=== PATIENT | female | born 1975 | race Caucasian/White ===

== ENCOUNTER 2023-01-03 | Emergency (ER) | payer BC, SELFPAY ==
--- NOTE | 2023-01-03 | ECG_ITS ---
Test Reason : CHEST PAIN Blood Pressure : / mmHG Vent. Rate : 065 BPM Atrial Rate : 065 BPM P-R Int : 148 ms QRS Dur : 072 ms QT Int : 388 ms P-R-T Axes : 069 086 054 degrees QTc Int : 403 ms Normal sinus rhythm with sinus arrhythmia Normal ECG No previous ECGs available Referred By: Generic ED Physician Electronically Signed By:JESS CARLSON
[2023-01-03 00:10] VITALS: BP 119/77; PULSE 70; RESP 18; TEMP 36.7; O2SAT 100; BMI 21.0
[2023-01-03 00:29] LABS: Hematocrit 36.5 % (37.0-47.0); Mean Corpuscular HGB Conc 32.9 g/dl (31.0-35.0); Mean Corpuscular Hemoglobin 29.4 pg (27.0-33.0); Mean Corpuscular Volume 89.5 fL (80.0-98.0); Mean Platelet Volume 10.9 fL (9.4-12.3); Platelet Count 254 X10*3/uL (160-400); Red Blood Count 4.08 X10*6/uL (4.20-5.50); Red Cell Distribution Width 12.2 % (11.0-16.0); White Blood Count 6.5 X10*3/uL (4.8-10.8)
[2023-01-03 00:35] LABS: Alanine Aminotransferase 8 U/L (0-31); Albumin Level 3.9 g/dL (3.5-5.0); Alkaline Phosphatase 40 U/L (39-117); Anion Gap 11 (12-20); Aspartate Amino Transferase 15 U/L (5-31); Bilirubin Total 0.4 mg/dL (0.0-1.0); Blood Urea Nitrogen 14 mg/dL (9-16); Calcium 8.8 mg/dL (8.4-10.2); Carbon Dioxide 26 mmol/L (22-29); Chloride 108 mmol/L (96-108); Creatinine Clr Calc Pharmacy 75.1; Estimated Glomerular Filt Rate > 60; Glucose Random 90 mg/dL (60-115); Potassium 4.2 mmol/L (3.3-5.1); Sodium 141 mmol/L (135-145); Total Protein 6.2 g/dL (6.5-8.0)
[2023-01-03 00:46] LABS: Troponin-I High Sensitivity < 2.7 ng/L (<3.5-17.0)
--- OUTSIDE RECORDS SUMMARY | 2023-01-03 03:12 | XMS_ITS | Continuity of Care Document ---
Author Name Unknown Organization [facility] Moiz Gusman n's Group Address [facility], [address] [place] [address]- Care Team Providers Care Speech And Language Assistant Name Role Phone Michael NUNEZ, Yan Denton Primary Care Physician [facility] Date(s): [facility]01[facility]21 [facility] [address] [place] [address], [address] [place] [address]- Allergies, Adverse Reactions, Alerts Substance Reaction Severity Status penicillin Active sulfADIAZINE Active Problem List Condition Effective Dates Status Health Status Inform ant Endometriosis(Confirmed) Active Ovarian cystic mass(Confirmed) Active Social History Social History Type Response Smoking Status Unknown if ever smok ed entered on: 02/23/16 Sex
--- OUTSIDE RECORDS SUMMARY | 2023-01-03 03:12 | XMS_ITS | Continuity of Care Document ---
Author Name Unknown Organization [facility] Moiz marquezAllostatixs [facility] Address [address] [facility], 4t [place] [address]- Care Team Providers Care Compressor Station Engineer Chief Name Role Phone Shari Delgado DO Primary Care Physician [phone] [id number] Date[facility]s): 03/27/22 - 04/03/22 [facility] Moizhue QuijnaoAllostatixs [facility] [address] [facility], [address] [place] [address]- Attending Physician: Tab NUNEZ, Red Rodriguez Referring Physician: Not on Staff, Referring MD Allergies, Adverse Reactions, Alerts Substance Reaction Severity Status penicillin Active sulfADIAZINE Active Glutens Active Milk Products Active Wheat Active Soy Products Active Medications Albuterol (Eqv-ProAir HFA) Inhalation, Every 6 hours, 0 Refills, Maintenance, 08/07/21 17:41:00 EDT, Partial fill upon patientrequest if the prescription is for a schedule II opioid drug. Start Date: 08/07/21 Status: Ordered Benadryl 25 mg oral capsule 2 capsule = 50 mg, By Mouth, Daily at bedtime, PRN as needed for insomnia, 0 Refills, Maintenance, 03/27/22 11:26:00 EST, Partial fill upon patient request if the prescription is for a schedule II opioid drug. Start Date: 03/27/22 Status: Ordered cyclobenzaprine 5 mg oral tablet 2 tablet = 10 mg, By Mouth, Daily at bedtime, 0 Refills, Maintenance, 03/27/22 11:25:00 EST, Partial fill upon patient request if the prescription is for a schedule II opioid drug. Start Date: 03/27/22 Status: Ordered Fish Oil By Mouth, 0 Refills, Maintenance, 08/07/21 17:40:00 EDT, Partial fill upon patient request if the prescription is for a schedule II opioid drug. Start Date: 08/07/21 Status: Ordered Flovent Diskus Inhalation, 2 times a day, 0 Refills, Maintenance, 08/07/21 17:41:00 EDT, Partial fill upon patientrequest if the prescription is for a schedule II opioid drug. Start Date: 08/07/21 Status: Ordered Magnesium Oxide By Mouth, 0 Refills, Maintenance, 08/07/21 17:41:00 EDT, Partial fill upon patient request if the prescription is for a schedule II opioid drug. Start Date: 08/07/21 Status: Ordered Multivitamin Daily, 0 Refills, Maintenance, 08/07/21 17:40:00 EDT, Partial fill upon patient request if the prescription is for a schedule II opioid drug. Start Date: 08/07/21 Status: Ordered Tylenol 325 mg oral tablet 975 mg, 3, tablet, By Mouth, Every 4 hours, PRN, # 120 tablet, Refills 0, Maintenance, Pain , Moderate, 03/27/22 11:25:00 EST, Partial fill upon patient request if the prescription is for a schedule II opioid drug. Start Date: 03/27/22 Status: Ordered Problem List Condition Confirmation Course Effective Dates Status Health St atus Informant Anxiety Confirmed Active Asthma Confirmed Active Depression Confirmed Active Endometriosis Confirmed Active Fibromyalgia Confirmed Active Migraine Confirmed Active Procedures Procedure Date Related Diagnosis Body Site Status Cystectomy 2021 Completed Adhesions due to endometriosis 1 Completed Endoscopy of upper gastroint estinal tract and banding of varix of stomach Completed 1bilateral ovaries, and left kidney Social History Social History Type Response Smoking Status Never (less than 100 in lifetime) entered on: 05/12/21 Sex Patient Care team information Care Team Personnel Name: Shari Delgado DO Position: [facility] Outreach Member Role: PCP Address: Address: [address] [place] [address]- Care Team Related Persons Name: WALTER CACERES Address: home [address] [place] [address]
--- OUTSIDE RECORDS SUMMARY | 2023-01-03 03:12 | XMS_ITS | Continuity of Care Document ---
Author Name Unknown Organization [facility] marquezLC [employer] Address [address] [place] [address], [address] [place] [address]- Care Team Providers Care Glass Artist Name Role Phone Shari Delgado DO Primary Care Physician [id number]): [facility] - 04[facility]11/22 [facility] Moizhue QuijanoLC [employer] [facility] [address] [facility], [address] [place] [address]- Attending Physician: Tab NUNEZ, Red Rodriguez Referring [...] opioid drug. Start Date: 08/07/21 Status: Ordered amitriptyline 25 mg oral tablet 25 mg, 1, tablet, By Mouth, Daily at bedtime, Can use pill cutter to reduce dose if you are experiencing side effects, # 30 tablet, Refills 2, Tot. Refills 2, Maintenance, 04/04/22 9:21:00 EST, [facility] Electron[facility], [facility]/pharmacy #, Par... Start Date: 04/04/22 Status: Ordered Benadryl 25 mg oral capsule [...] List Condition Confirmation Course Effective Dates Status [facility] atus Informant Anxiety Confirmed Active Asthma Confirmed Active Depression Confirmed Active Endometriosis Confirmed Active Fibromyalgia Confirmed Active Migraine Confirmed Active Vital Signs Most recent to oldest [Reference Range]: 1 Height 165 cm (04/04/22 8:26 AM) Weight 60.45 kg (04/04/22 8:26 AM) Body Mass Index [18.5-24.99 kg/m2] 22.2 kg/m2 (04/04/22 8:26 AM) Blood Pressure [90-138/55-84 mm Hg] 92/6 0mm Hg (04/04/22 8:26 AM) Blood pressure sites Arm, left (04/04/22 8:26 AM) Weight Obtained Via Standing scale (04/04/22 8:26 AM) Social History Social History Type Response Smoking Status Never (less than 100 in lifetime) entered on: 05/12/21 Sex Patient Care team information Care Team Personnel Name: Shari Delgado DO Position: [facility] Outreach Member Role: PCP Address: Address: [address] [place] [address] [address]- Care Team Related Persons Name: WALTER CACERES Address: home [address] [place] [address]
--- OUTSIDE RECORDS SUMMARY | 2023-01-03 03:12 | XMS_ITS | Continuity of Care Document ---
Author Name Unknown Organization [facility] ter Address [address] [place] [address]- Care Team Providers Care Steam Plant Operator Name Role Phone Shari Delgado DO Primary Care Physician [phone] Encounter [facility] Date(s): 02/21/22 - 02/22/[address] [address]- Discharge Disposition: A-D/C Walkout Attending Physician: Not on Staff, Attending MD Admitting Physician: Not on Staff, Admitting MD Referring Physician: Not on Staff, Referring MD Allergies, Adverse Reactions, Alerts Substance Reaction Severity Status penicillin Active sulfADIAZINE Active Medications Albuterol (Eqv-ProAir HFA) Inhalation, Every 6 hours, 0 Refills, Maintenance, 08/07/21 17:41:00 EDT, Partial fill upon patientrequest if the prescription is for a schedule II opioid drug. Start Date: 08/07/21 Status: Ordered Fish Oil By Mouth, 0 [...] opioid drug. Start Date: 08/07/21 Status: Ordered Problem List Condition Confirmation Course Effective Dates Status H ealth Status Informant Anxiety Confirmed Active Asthma Confirmed Active Depression Confirmed Active Endometriosis Confirmed Active Fibromyalgia Confirmed Active Irritable bowel syndrome Confirmed Active Migraine Confirmed Active Ovarian cystic mass Confirmed Active Vital Signs Most recent to oldest [Reference Range]: 1 2 3 Height 165 cm (02/21/22 3:08 PM) Oxygen Saturation [94-100 %] 99 % (02/22/22 12:38 AM) 98 % (02/21/22 10:41 PM) 98 % (02/21/22 8:27 PM) Pulse Rate [55-90 bpm] 91 bpm *H* (02/22/22 12:38 AM) 98 bpm *H* (02/21/22 10:41 PM) 95 bpm *H* (02/21/22 8:27 PM) Blood Pressure [90-138/55-84 mm Hg] 105/65mm Hg (02/22/22 12:38 AM) 99/62mm Hg (02/21/22 10:41 PM) 113/72mm Hg (02/21/22 8:27 PM) Respiratory Rate [16-30 br/min] 20 br/min (02/21/22 4:54 PM) 20 br/min (02/21/22 3:08 PM) 18 br/min (02/21/22 2:51 PM) Temperature [96.8-100.4 DegF] 97.8 DegF (02/22/22 12:38 AM) 97.8 DegF (02/21/22 10:41 PM) 98.1 DegF (02/21/22 8:27 PM) Mode of Delivery (Oxygen) Room air (02/22/22 12:38 AM) Room air (02/21/22 10:41 PM) Room air (02/21/22 8:27 PM) Blood pressure sites Arm, right (02/22/22 12:38 AM) Arm, right (02/21/22 10:41 PM) Arm, right (02/21/22 8:27 PM) Temperature Route Oral (02/22/22 12:38 AM) Oral (02/21/22 10:41 PM) Oral (02/21/22 8:27 PM) Dry Weight 62.5 kg (02/21/22 3:08 PM) Social History Social History Type Response Smoking Status Never (less than 100 in lifetime) entered on: 05/12/21 Sex Patient Care team information Personnel Name: Shari Delgado DO Address: Address: [address] [place] [address]
--- OUTSIDE RECORDS SUMMARY | 2023-01-03 03:12 | XMS_ITS | Continuity of Care Document ---
Author Name Unknown Organization [facility] nParad[employer]s [facility] Address [address] [place] [address], [address] [place] [address]- Care Team Providers Care Database Architect Name Role Phone Shari Delgado DO Primary Care Physician [phone] [id number] Date[facility]s): 04/04/22 - 06/10/22 [facility] Moizhue QuijanoParadox Technology Solutionss [facility] [address] [facility], [address] [place] [address]- Attending Physician: Red Barth MD Allergies, Adverse Reactions, Alerts Substance Reaction [...] Tot. Refills 2, Maintenance, 04/04/22 9:21:00 EST, [facility] Electronically, [facility]/pharmacy #[id number], Par... Start Date: 04/04/22 Status: Ordered Benadryl [...] List Condition Confirmation Course Effective Dates Status [facility] at Informant Anxiety Confirmed Active Asthma Confirmed Active Depression Confirmed Active Abdominal adhesions Confirmed Active Endometriosis, laparoscopy proven 2012 Confirmed Active Fibromyalgia Confirmed Active Migraine Confirmed Active Last Pap smear 09/15/21 negative with negative HPV Confirmed Active Social History Social History Type Response Smoking Status Never (less than 100 in lifetime) entered on: 05/12/21 Sex Patient Care team information Care Team Personnel Name: Shari Delgado DO Position: S Outreach Member Role: PCP Address: Address: [address] [place] [address] [address]- Care Team Related Persons Name: WALTER CACERES Address: home [address] [place] [address]
--- OUTSIDE RECORDS SUMMARY | 2023-01-03 03:12 | XMS_ITS | Continuity of Care Document ---
Author Name Unknown Organization [facility] Address [address] [facility], [facility] [address] [place] [address]- Care Team Providers Care Army Officer Name Role Phone Shari Delgado DO Primary Care Physician Encounter 10/13/22 - 10/20/22 [facility] [address], [facility] [address] [place] [address]- Attending Physician: Shari Delgado DO Admitting Physician: Shari Delgado DO Referring Physician: Shari Delgado DO Allergies, Adverse Reactions, Alerts Substance Reaction Severity Status penicillin Active sulfADIAZINE Active Milk Products Active Soy Products Active Wheat Active Glutens Active Medications Albuterol (Eqv-ProAir HFA) Inhalation, Every [...] Tot. Refills 2, Maintenance, 04/04/22 9:21:00 EST, [facility] Electronically, [facility]/pharmacy #[id number], Par... Start Date: 04/04/22 Status: Ordered [...] 09/15/21 negative with negative HPV Confirmed Active Results Radiology Reports * Exam Date Time Procedure Performing Provider Status 10/13/22 12:44 PM MM Digital Mammo Screening Tayo Figueroa; Auth (Verified) Notes: (MM Digital Mammo Screening) Reason For Exam: Z12.31 SCREENING RESULT: MM Digital Mammo Screening PROCEDURE: MM Digital Mammo Screening INDICATION: Screening for breast cancer. No known palpable abnormalities. COMPARISON: Multiple prior studies dating back to 12/26/2007. TECHNIQUE: Full-field digital CC and MLO 3D tomosynthesis images of both breasts were acquired. Computer-aided detection (CAD) was utilized in the interpretation of this study. DENSITY: The breast tissue is extremely dense, which lowers the sensitivity of mammography. FINDINGS: 1.7 cm well-circumscribed asymmetry is noted within the inferior aspect of the left breast on the MLO view approximately 3.9 cm from the nipple, not definitely seen on prior studies. Recommend further evaluation with MLO spot compression Tomosynthysis view, and a full-field ML Tomosynthysis view. Ultrasound may be needed. Numerous similar-appearing, dense, benign-appearing punctate and round calcifications scattered throughout both breasts, diffuse on the right, and somewhat more localized in the upper outer left breast on the left have increased from prior study, however the most recent comparison study is from 2009 and overall appearance is benign. 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 Biopsy clip in the posterior upper left breast. No suspicious findings are seen in the right breast. IMPRESSION: Additional imaging recommended. We will recall the patient. RECOMMENDATION: Left diagnostic mammogram with scheduled ultrasound BI-RADS: 0 Incomplete - Need Additional Imaging Evaluation. Lay letter mailed to patient WSN: [id number] Ordering Physician: Shari Delgado DO Dictated By: Mj Arthur MD Dictated Date/Time: 10/13/22 2:02 pm Reviewed By: Mj Arthur MD Signed By: Mj Arthur MD Signed Date/Time: 10/13/22 2:02 pm Transcribed By: ROSA Evaluation Specialist Date/Time: 10/13/22 1:50 pm Birads: Social History Social History Type Response Smoking Status Never (less than 100 in lifetime) entered on: 05/12/21 Sex Patient Care team information Care Team Personnel Name: Shari Delgado DO Position: S Outreach Member Role: PCP Address: Address: [address] [place] [address]- Care Team Related Persons Name: WALTER CACERES Address: home [address] [place] [address]
--- OUTSIDE RECORDS SUMMARY | 2023-01-03 03:13 | XMS_ITS | Continuity of Care Document ---
Author Name Unknown Organization [facility] Address [address] [place] [address]- Care Team Providers Care International Trade Analyst Name Role Phone Shari Delgado DO Primary Care Physician [phone] Encounter [facility] Date(s): 02/16/22 - 03/18/22 [facility] [address] [place] [address]- Attending Physician: Niya Brenner Admitting Physician: Niya Brenner Referring Physician: AdmtrNiya Allergies, Adverse Reactions, Alerts Substance Reaction Severity [...] Confirmed Active Ovarian cystic mass Confirmed Active Social History Social History Type Response Smoking Status Never (less than 100 in lifetime) entered on: 05/12/21 Sex Patient Care team information Care Team Personnel Name: Shari Delgado DO Position: [facility] Outreach Member Role: PCP Address: Address: [address] [place] [address]- Care Team Related Persons Name: WALTER CACERES Address: home [address] [place] [address]
--- OUTSIDE RECORDS SUMMARY | 2023-01-03 03:13 | XMS_ITS | Continuity of Care Document ---
Author Name Unknown Organization [facility] Moizhue Gusman [employer] Address [address] [place] [address], [address] [place] [address]- Care Team Providers Care Train Caller Name Role Phone Michael NUNEZ, Yan Denton Primary Care Physician Encounter [facility] Date(s): 06/23/21 - 08/28/21 [facility] Samm[facility]umates [facility] [address] [facility], [address] [place], [place] [address] Attending Physician: Yarely Hinton MD Allergies, Adverse Reactions, Alerts Substance Reaction [...] Date: 08/07/21 Status: Ordered Problem List Condition Effective Dates Status Health Status Inform ant Anxiety(Confirmed) Active Asthma(Confirmed) Active Depression(Confirmed) Active Endometriosis(Confirmed) Active Fibromyalgia(Confirmed) Active Irritable bowel syndrome(Confirmed) Active Migraine(Confirmed) Active Ovarian cystic mass(Confirmed) Active Social History Social History Type Response Smoking Status Never (less than 100 in lifetime) entered on: 05/12/21 Sex
--- OUTSIDE RECORDS SUMMARY | 2023-01-03 03:13 | XMS_ITS | Continuity of Care Document ---
Author Name Unknown Organization [facility] Moiz Gusman n's Group Address [address] [facility], [address] [place] [address]- Care Team Providers Care Candy Feeder Name Role Phone Michael NUNEZ, Yan Denton Primary Care Physician [phone] [id number] Date(s): 05/13/21 - 05/20/21 [facility] [address] [facility], [address] [place] [address]- Attending Physician: Yarely Hinton MD Referring Physician: Violetta Sanchez DO Allergies, Adverse Reactions, Alerts Substance Reaction Severity Status penicillin Active sulfADIAZINE Active Problem List Condition Effective Dates Status Health Status Inform ant Anxiety(Confirmed) Active Asthma(Confirmed) Active Depression(Confirmed) Active Endometriosis(Confirmed) Active Fibromyalgia(Confirmed) Active Irritable bowel syndrome(Confirmed) Active Migraine(Confirmed) Active Ovarian cystic mass(Confirmed) Active Vital Signs Most recent to oldest [Reference Range]: 1 Height 165 cm (05/13/21 9:49 AM) Weight 61 kg (05/13/21 9:49 AM) Pulse Rate [55-90 bpm] 100 bpm *H* (05/13/21 9:49 AM) Body Mass Index [18.5-24.99] 22.41 (05/13/21 9:49 AM) Blood Pressure [90-138/55-84 mm Hg] 108/ 74mm Hg (05/13/21 9:49 AM) Respiratory Rate [16-30 br/min] 25 br/mi n (05/13/21 9:49 AM) Blood pressure sites Arm, left (05/13/21 9:49 AM) Weight Obtained Via Standing scale (05/13/21 9:49 AM) Social History Social History Type Response Smoking Status Never (less than 100 in lifetime) entered on: 05/12/21 Sex
--- OUTSIDE RECORDS SUMMARY | 2023-01-03 03:13 | XMS_ITS | Continuity of Care Document ---
Author Name Unknown Organization [facility] Naseem nPatient Education [employer]ss [facility] Address [address] [place] [address], [address] [place] [address]- Care Team Providers Care Oracle E Business Developer Name Role Phone Shari Delgado DO Primary Care Physician [id number] Date(s): 05/11/22 - 06/10/22 [facility]ijanoPatient Education Systemss [facility] [address] [facility], [address] [place], [place] [address] Attending Physician: Niya Brenner Admitting Physician: AdmNiya tellez Referring Physician: AdmtrNiya Allergies, Adverse Reactions, Alerts Substance Reaction Severity Status penicillin Active sulfADIAZINE Active Wheat Active Soy Products Active Glutens Active Milk Products Active Medications Albuterol (Eqv-ProAir HFA) Inhalation, [...] Tot. Refills 2, Maintenance, 04/04/22 9:21:00 EST, [facility] Electronically, [facility]/pharmacy #[id number], Par... Start Date: 04/04/22 Status: Ordered [...] S Outreach Member Role: PCP Address: Address: [address] [place] [address]- Care Team Related Persons Name: WALTER CACERES Address: home [address] [place] [address]
--- OUTSIDE RECORDS SUMMARY | 2023-01-03 03:13 | XMS_ITS | Continuity of Care Document ---
Author Name Unknown Organization [facility] Address [address] [facility], [address] [place] [address]- Care Team Providers Care River Driver Name Role Phone Michael NUNEZ, Yan Denton Primary Care Physician [phone] Encounter [facility] Date(s): 12/02/21 - 01/01/22 [facility] Tutor [place] QuijanoBasyss [facility] [address] [facility], [address] [place] [address]- Attending Physician: Niya Brenner Admitting Physician: AdmtrNiya Referring Physician: Admtr, [id number] Allergies, Adverse Reactions, Alerts Substance Reaction Severity [...] 100 in lifetime) entered on: 05/12/21 Sex Care Team Personnel Name: Yan Rodriguez MD Address: [address] [place] [address]
--- OUTSIDE RECORDS SUMMARY | 2023-01-03 03:13 | XMS_ITS | Continuity of Care Document ---
Author Name Unknown Organization [facility] Address [address] [place] [address]- Care Team Providers Care Options Advisor Name Role Phone Yan Rodriguez MD Primary Care Physician [phone] Encounter [facility] Date(s): 08/19/21 - 10/20/[address] [address]- Attending Physician: Yarely Hinton MD Admitting Physician: Yarely Hinton MD Allergies, Adverse Reactions, [...]
--- OUTSIDE RECORDS SUMMARY | 2023-01-03 03:13 | XMS_ITS | Continuity of Care Document ---
Author Name Unknown Organization [facility] Address [address] [facility], [facility] [address] [place] [address]- Care Team Providers Care Tool Engine Lathe Set Up Operator Name Role Phone Adrianna Mena DO Primary Care Physician Encounter 10/16/22 - 12/07/22 [facility] [address], [facility] [address] [place] [address]- Attending Physician: Shari Delgado DO Admitting Physician: Shari Delgado DO Referring Physician: Shari Delgado DO Allergies, Adverse Reactions, Alerts Substance Reaction Severity Status penicillin Active sulfADIAZINE Active Soy Products Active Glutens Active Milk Products Active Wheat Active Medications Albuterol (Eqv-ProAir HFA) Inhalation, Every [...] Tot. Refills 2, Maintenance, 04/04/22 9:21:00 EST, [facility] Electronically, [facility]/pharmacy #3, Par... Start Date: 04/04/22 Status: Ordered Benadryl [...] Confirmation Course Effective Dates Status Health St at Informant Anxiety Confirmed Active Asthma Confirmed Active Depression Confirmed Active Abdominal adhesions Confirmed Active Endometriosis, laparoscopy proven 2012 Confirmed Active Fibromyalgia Confirmed Active Migraine Confirmed Active Last Pap smear 09/15/21 negative with negative HPV Confirmed Active Social History Social History Type Response Smoking Status Never (less than 100 in lifetime) entered on: 05/12/21 Sex Patient Care team information Care Team Personnel Name: Adrianna Mena DO Position: Reference Physician Member Role: PCP Address: Address: [address] [place] [address]- Care Team Related Persons Name: WALTER CACERES Address: home [address] [place] [address]
--- OUTSIDE RECORDS SUMMARY | 2023-01-03 03:13 | XMS_ITS | Continuity of Care Document ---
Author Name Unknown Organization [facility] Moiz Gusman [employer] [facility] Address [address], [address] [place] [address]- Care Team Providers Care Starcher And Tenter Range Feeder Name Role Phone Yan Rodriguez MD Primary Care Physician [phone] Encounter [facility] [place] Date(s): 05/13/21 - 07/24/21 [facility] [place] [employer] [facility] [address] [facility] [place], [place] [address] Attending Physician: Yarely Hinton MD Allergies, Adverse [...]
--- OUTSIDE RECORDS SUMMARY | 2023-01-03 03:13 | XMS_ITS | Continuity of Care Document ---
Author Name Unknown Organization [facility] Moiz marquezCandi [employer] [facility] Address [address], [address] [place] [address]- Care Team Providers Care Test Designer Name Role Phone Yan Rodriguez MD Primary Care Physician Encounter [facility] [facility] [id number] Date(s): 09/03/21 - 01/01/22 [facility] [place] [employer] [facility] [address] [place] [address]- Attending Physician: Yarely Hinton MD Referring Physician: Yan Rodriguez MD Allergies, Adverse Reactions, Alerts Substance Reaction [...] Team Personnel Name: Yan Rodriguez MD Address: [address] [place] [id number]
--- OUTSIDE RECORDS SUMMARY | 2023-01-03 03:13 | XMS_ITS | Continuity of Care Document ---
Author Name Unknown Organization [facility] ter Address [address] [place] [id number]- Care Team Providers Care High Voltage Electrician Name Role Phone Adrianna Mena DO Primary Care Physician [phone] Encounter [facility] [place] Date(s): 11/09/22 - 12/30/[address] [address]- Attending Physician: Shari Delgado DO Admitting Physician: [...] Tot. Refills 2, Maintenance, 04/04/22 9:21:00 EST, [facility] Electronically, [facility]/pharmacy #7, Par... Start Date: 04/04/22 Status: Ordered Benadryl [...] Reference Physician Member Role: PCP Address: Address: [address] [place] [address]- Care Team Related Persons Name: WALTER CACERES Address: [address] [place] [address]
--- OUTSIDE RECORDS SUMMARY | 2023-01-03 03:13 | XMS_ITS | Continuity of Care Document ---
Author Name Unknown Organization [facility] Moiz marqueziiy[employer] [facility] Address [address], [address] [place] [address]- Care Team Providers Care Clinical Business Manager Name Role Phone Yan Rodriguez MD Primary Care Physician [id number] Date(s): 08/22/21 - 12/04/21 [facility] [place] Quijano[employer] [facility] [address] [place] [address]- Attending Physician: Yarely Hinton MD Referring Physician: [...]
--- OUTSIDE RECORDS SUMMARY | 2023-01-03 03:14 | XMS_ITS | Continuity of Care Document ---
Author Name Unknown Organization [facility] Moiz Gusman n's [facility] Address [address] [facility], [address] [place] [address]- Care Team Providers Care Content Development Specialist Name Role Phone Yan Rodriguez MD Primary Care Physician Encounter [facility] [place] Date(s): 05/26/21 - 06/25/21 [facility] [employer] [facility] [address] [facility] [facility] [place], [place] [address] Allergies, Adverse Reactions, Alerts Substance Reaction Severity [...]
== END 2023-01-03 03:34 | disposition left against medical advice (07) ==
PROVIDERS: Emergency Provider Emergency Medicine
DX: R07.9 Chest pain, unspecified (principal)
CPT/HCPCS: 36415; 80053; 84484; 85027; 93005; 99283

== ENCOUNTER 2024-06-16 09:58 | Emergency (ER) | payer BC, SELFPAY ==
--- NOTE | ~2024-06-16 | XR_ITS ---
CLINICAL HISTORY: Pain 2 views thoracic spine Comparison: None Findings: The usual thoracic kyphosis is maintained without spondylolisthesis. Minimal S shaped curvature of the thoracolumbar spine. Vertebral body heights are maintained. Minimal midthoracic discogenic degenerative disease. IMPRESSION: No acute findings. This document has been electronically signed by: Duncan Asif DO on 06/16/2024 11:21:19
--- NOTE | ~2024-06-16 | XR_ITS ---
CLINICAL HISTORY: Pain Chest radiographs, 2 views Comparison: None Findings: The cardiomediastinal silhouette is not enlarged. Pulmonary vascularity is unremarkable. No focal consolidation or effusion. No pneumothorax. IMPRESSION: No acute cardiopulmonary findings. This document has been electronically signed by: Duncan Asif DO on 06/16/2024 11:28:42
[2024-06-16 10:06] VITALS: BP 108/68; PULSE 97; RESP 16; TEMP 37.1; O2SAT 98; BMI 21.1
--- OUTSIDE RECORDS SUMMARY | 2024-06-16 10:31 | XMS_ITS | Data Portability ---
Author Organization [facility], , [facility], OFFICE Address [address] [place] [address] Care Team Providers Care Senior Water/Wastewater Engineer Name Role Phone [facility] (ANGIE THOMPSON) Orthopedic Surgeon JARAD MONTES Manager Sign [facility] Dermatologis t DIANE MENA Primary Care Provider [phone] [facility] Information Systems Security Developer HA BENOIT Hot Baller Assessment Encounter Date Assessment Date Assessment LastModified by Organization Details LastModified Time 03/21/2024 03/21/2024 Assessment & Plan Multiple Food Intolerances 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 Patient expressed interest in seeing a residency director or crab fisherman. - Patient to check with insurance regarding coverage for residency director or crab fisherman and provide names for referral. History of Eye Issue Patient reported a past issue with left eye drooping, pt believes to be related to histamine intolerance. Pt reports has since resolved. On exam there is a slight ptosis on the L side, but the L side in general is more prominent which could be 2/2 chronic side sleeping favoring one side and some questionable modest swelling of the L upper lid which may also contribute. pt denies any affect on eye sight. - No current intervention needed as issue has resolved. Fibrocystic Breast Changes Patient reports fibrocystic changes in breasts, more pronounced on the left side. Last mammogram and ultrasound in 2022 showed benign cysts. - Order breast MRI for further evaluation due to extremely dense breast tissue. - Patient to discuss preference for ultrasound over mammogram with imaging center. Asthma Patient reports mild, well-controlled asthma. Does not use inhaler regularly, only when sick. - Continue current management. Anxiety Patient reports anxiety, no further details provided. - No current intervention needed. History of HPV and Endometriosis Patient reports history of HPV and endometriosis, both of which have been resolved. - Continue regular gynecological follow-ups. General Health Maintenance - Schedule next year's wellness visit. - Patient to follow up with sample taker operator in the summer. [email or web address] Not available 03/21/2024 15:12:19 Plan of Treatment Reminders Order Date Submit Date Provider Last Modified By Organization Details Last Modified Time Details Appointments None recorded. Lab culture, urine 2024 025 [facility], [address] [facility], [place], [address], 5 22:38:51 Referral breast center referral - Last screening and other imaging in chart from 10/13/22 and 11/22/22 at [facility] 2023 024 [facility], [address] [place], [address], 4 08:17:43 Procedures None recorded. Surgeries None recorded. Imaging MAMMO, diagnostic , digital, bilateral - breast pain both breasts, diffuse, hx fibrocysti c breastsLas t screening was at [facility] 10/13/222024 025 [facility], All Locations, [place], [address], 5 12:00:21 US, breast, bilateral - breast pain bilateral diffuse. hx fibrocysti c 2024 025 [facility], [address] [place], [address], 5 12:00:29 MRI, breast, bilateral, w/o contrast 2023 024 [email or web address] [facility] [address], [place], [address], 4 10:43:21 MAMMO, screening, tomosynthe sis, bilateral 2023 024 [facility], [address] [place], [address], 5 10:05:25 US, abdomen, complete - acute on chronic worsening abdominal pain, diffuse, greatest in upper quadrants. 2023 024 [facility] ([facility]), [address], [place], [address], 4 08:47:13 Medication Orders meloxicam 15 mg tablet 2024 025 [id number], [address] [place], [place], [id number], 5 09:27:19 Patient TargetsNo targets recorded. Patient Instructions Encounter Date Encounter Id Patient Instructions Last Modified By Organization Details Last Modified Time 03/21/2024 [id number] asthma attack: care instructions [email or web address] Not available 03/21/2024 10:56:21 06/12/2024 [id number] I am aware of e inpatient facility discharge medications, the medication list above has been reconciled with those medications and reflects my understanding of an up to date medication list for this patient. Not available 06/11/2024 12:09:04 Reason for Referral Breast Center Referral for E xtremely dense breast composition Last screening and other imaging in chart from 10/13/22 and 11/22/22 at [facility] Referring Physician: Diane Mena, Family Medicine, Encounter Date: 03/21/2024 Results Created Date Observation Date Name Description Value Unit Range Abnormal Flag Note LastModifiedBy Organization Detail LastModifiedTime 05/25/19 24 05/28/2023 THYRO GLOBU RICK ANTIB ODIES thyroglobuli n antibodies <1 IU/mL < or = 1 normal Not Available [facility] [address], [place], [address], 05/28/2023 16:22:35 12/06/19 24 12/08/2023 TRYPT ASE tryptase 3.3 mcg/L <11.0 normal The Trypt ase test, fluor escen t enzym e immun oassa y (FEIA ), measu res both the Alpha and Beta forms of Trypt ase. Measu ring both forms of Trypt ase incre ases sensi tivit y for the diagn osis of masto cytos is, and mast cell degra nulat ion as a cause of anaph ylaxi s. Not Available [facility] [address], [place], [address], 12/08/2023 04:32:35 12/06/19 24 12/17/2023 N METHY LTHIS TATUM AREVALO, U N methylhistam ine, random, U 124 mcg/g _cr 30-200 ----- ----- ----- ----A DDITI ONAL INFOR MATIO N---- ----- ----- ----- This test was shahla james and its perfo rmanc e tere cteri stics deter mined by [facility] in a srikanth r consi stent with IRIS lyons. This test has not been clear ed or appro kiki by the U.S. Food and Drug Admin istra tion. Not Available [facility] [address], [place], [address], 12/17/2023 13:03:35 12/06/19 24 12/17/2023 N METHY LTHIS TATUM AREVALO, U creatinine, random, U 194 mg/dL 16 - 326 Not Available [facility] [address], [place], [address], 12/17/2023 13:03:35 12/06/19 24 12/17/2023 MISCE LLANE OUS REFER RAL test name: PROSTA GLANDI NS D2 RANDOM URINE normal Not Available [facility] [address], [address], 12/17/2023 13:03:36 12/06/19 24 12/17/2023 MISCE LLANE OUS REFER RAL result: 118 NG/g_ creat inine <175 The test was devel oped and its perfo rmanc e tree cteri stics deter mined by [facility]. Value s obtai codie with diffe rent metho ds, labor atori es, or kits canno t be used inter araujo eably with the resul ts on this repor t. The resul ts canno t be inter prete d as absol chicken ranch evide nce of the prese nce or absen ce of elza barth se. TEST PERFO RMED AT: [facility] [address] [place] [address] LABOR ATORY DIREC TOR: PILAR LEAL M.D., PhD Not Available [facility] [address], [address], 12/17/2023 13:03:36 12/11/19 24 12/13/2023 ANATO TREVOR PATHO LOGY path report [facility] [address] [place] [address] Lab Direc tor: Kim meier MD Surgi pardeep Patho logy Repor t Acces josefa #: [id number] FINAL PATHO LOGIC DIAGN OSIS: DUODE NUM, BIOPS Y: No patho logic abnor malit y. Yoana ctron icall y Oly d Out By Pancho lazo MD By his/h er signchalrotte turariella above , the patho logis t liste d as serenity adames the Final Diagn osis certi fies that he/sh e has perso lyndon revie wed this case and confi rmed or corre cted the diagn osis. CLINI PARDEEP HISTO RY GERD, dysph agia, epiga stric abdom inal pain. SPECI MENS SUBMI TTED: A: DUODE NUM, BIOPS Y GROSS DESCR IPTIO N DUODE NUM, BIOPS Y: Recei kiki in forma rick are 2 irreg ular briscoe-p ink soft tissu e fragm ents measu ring on avera ge 0.5 x 0.4 x 0.2 cm which are submi tted in toto in a singl e casse tte label ed A1. Gross ed by: Ge preston, CAT, PA( CP) DN 2023 Gross ing Staff : [id number] Patie nt Name: CARMEN ROSE : 978 (Age: 48) Sex: F 5 Insti tutio n: [facility] Locat ion: [facility] Date of Opera tion: 2023 Date of Acces josefa: 2023 Repor jeanette: 2023 12:54 Resul ts To: Damon Davila and , BS Batista y Medic al Speci altie s Not Available [facility] (Outpatient) [address] [place] [address], [address], 12/13/2023 13:59:26 11/02/19 24 11/02/2023 US, abdom en, compl ete CLINIC AL HISTOR Y: Worsen ing upper quadra nt abdomi nal pain TECHNI QUE: 2D sonogr aphy of the abdome n perfor med. COMPAR MARIE: 12/04/19 21 FINDIN GS: The aorta and IVC are normal sized. The liver is normal in echote xture. There is a 1.8 x 2.0 x 1.9 cm hetero geneou s echoge sebastian mass in the right lobe of the liver. There is a separa te 1.0 x 0.9 x 0.9 cm echoge sebastian mass. These were previo usly measur ed at 1.2 x 1.7 x 1.7 cm and 0.9 x 0.9 x 0.9 cm. The gallbl adder is thin-w alled. There is a 3 mm non-mo bile echoge sebastian focus along the wall of the gallbl adder. This is consis tent with a polyp and has not signif icantl y change d from the prior study. There are no gallst ones and there is no perich olecys tic fluid. The patien t is not focall y tender during examin ation of the gallbl adder. Common duct: 2 mm Right kidney 3.8 x 10.5 cm. The right kidney is normal in echote xture. There is no solid mass, stone, or hydron ephros is. Left kidney 4.4 x 10.3 cm. The left kidney is normal in echote xture. There is no solid mass, stone, or hydron ephros is. There is no ascite s. The visual ized portio ns of the pancre as are normal . There is some limita tion due to overly ing bowel gas. Spleen 10.1 cm. The spleen is unrema rkable . IMPRES JOSEFA: 1. No signif icant change in L3 millim eter gallbl adder polyp. Follow -up is not requir ed. 2. 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 No signif icant change from the prior study. . Denia yepez: Loi Parks ms [facility]) [address], [place], [address], 11/02/2023 17:39:53 Result Notes None recorded. Procedures Surgical History Date Name Laterality Status Provider Name and Address Organization Details Recorded Time 4 Romeo - Colonoscopy completed Damon Walters MD [address] [place] [address], [phone], [facility] 12/11/2023 13:24:38 Shireen Walters - Upper Endoscopy completed Damon Walters MD [address] [place] [address], [phone], [facility] 12/11/2023 13:23:28 Imaging Results Imaging Date Name Status LastModified by Organiz ation Details LastModified Time 11/02/2023 US, abdomen, complete completed [facility]) [address] , [place], [address], 11/02/2023 17:39:53 Procedure Notes None recorded. Medical Equipment None Reported. Allergies Allergen ID Allergen Name Allergen Category Reaction Reaction Severity Criticality Documentation Date Start Date Code Code System Note Provider Name and Address Organization Details Recorded Time 735983 Product containin g penicilli n (product) medicatio n hives Not available Not available 12/11/2023 [id number] SARAH Ingram, [facility] 4 12:37:05 [id number] Substance with sulfonami de structure and antibacte rial mechanism of action (substanc e) medicatio n hives Not available Not available 12/11/2023 26586 8003 SARAH Ingram, [facility] 4 12:37:28 Medications Name Sig Start Date Stop Date Status Note LastModified by Organization Details LastModified Time zinc sulfate 50mg TAKE 1 Tablet BY MOUTH ONCE A DAY 03/01 completed not taken 09/27/21t t Not Available Not Available Not Available naltrexon e 4mg caps. DIRECTED 02/27 completed Not Available Not Available Not Available hydrocort isone 5 mg tablet TAKE 1 TABLET BY MOUTH THREE TIMES DAILY 03/21 completed Not Available Not Available Not Available ivermecti n 3 mg tablet TAKE 4 TABLETS BY MOUTH ON DAY 1 AND DAY 3, THEN 4 tablets ONCE EVERY 2 WEEKS 06/12 completed prn for covid per patient Not Available Not Available Not Available cromolyn 100 mg/5 mL oral concentra te TAKE 5 ML BY MOUTH FOUR TIMES DAILY 03/21 completed Not Available Not Available Not Available venlafaxi ne ER 37.5 mg capsule,e xtended release 24 hr TAKE 1 CAPSULE BY MOUTH EVERY DAY active Not Available Not Available No t Available prednison e 10 mg tablet 02/08 completed Not Available Not Available Not Available paroxetin e 10 mg tablet TAKE 1 & 1/2 TABLETS DAILY BY MOUTH active Not Available Not Available No t Available Apri 0.15 mg-0.03 mg tablet 08/28 completed Not Available Not Available Not Available polyethyl kendrick glycol 3350 17 gram oral powder packet TAKE 1 PACKET (17 G TOTAL) BY MOUTH DAILY. 02/14 completed Not Available Not Available Not Available Prenatabs Rx 29 mg iron-1 mg tablet TAKE 1 TABLET BY MOUTH EVERY DAY 01/16 completed Not Available Not Available Not Available nystatin 100,000 unit/gram topical ointment active Not Available Not Available Not Available fluconazo le 150 mg tablet TK 1 T PO ONCE active Not Available Not Available No t Available benzonata te 200 mg capsule TAKE 1 CAPSULE BY MOUTH THREE TIMES A DAY 09/12 completed Not Available Not Available Not Available clomiphen e citrate 50 mg tablet TAKE 2 TABLETS BY MOUTH DAILY FOR 5 DAYS FROM DAY 3 THRU 7 OF CYCLE 08/28 completed Not Available Not Available Not Available valacyclo vir 1 gram tablet active Not Available Not Available Not Available sumatript an 100 mg tablet 1 with migraine . may repeat in 2 hours if needed. Max 2/week 04/01 completed PRN Not Available Not Available Not Available meloxicam 15 mg tablet Take 1 tablet every day by oral route for 14 days. 2024 active Not Available Not Available Not Avai lable naltrexon e 50 mg tablet Take 1 tablet every day by oral route as needed for 30 days. 01/15 completed Not Available Not Available Not Available sumatript an 25 mg tablet PLEASE SEE ATTACHED FOR DETAILED DIRECTIO NS 04/01 completed Not Available Not Available Not Available prednison e 20 mg tablet PLEASE SEE ATTACHED FOR DETAILED DIRECTIO NS 02/14 completed Not Available Not Available Not Available lidocaine HCl 2 % mucosal jelly apply to rectal area q 2 hrs prn rectal/v aginal pain 03/21 completed Not Available Not Available Not Available hydrocort isone acetate 25 mg rectal supposito ry Insert 1 supposit ory twice a day by rectal route for 3 days. active Not Available Not Available No t Available nystatin- triamcino lone 100,000 unit/gram -0.1 % topical ointment active Not Available Not Available Not Available amitripty line 25 mg tablet 09/12 completed Not Available Not Available Not Available dicyclomi ne 20 mg tablet Take 1 tablet 4 times a day by oral route as needed. 04/07 completed Pt not taking 04/07/19 NMT Not Available Not Available Not Available diazepam 2 mg tablet 01/30 completed Not Available Not Available Not Available Nortrel 0.5/35 (28) 0.5 mg-35 mcg tablet active Not Available Not Available Not Available ranitidin e 150 mg tablet active Not Available Not Available Not Available clotrimaz ole-betam ethasone 1 %-0.05 % topical cream JEANNE EXTERNAL LY AA BID FOR 14 DAYS active Not Available Not Available No t Available prednison e 50 mg tablet TAKE 1 TABLET BY MOUTH EVERY DAY FOR 5 DAYS 02/14 completed Not Available Not Available Not Available Citrucel 500 mg tablet Take 1 tablet 3 times a day by oral route. 2011 active Not Available Not Available Not Avai lable bupropion HCl 75 mg tablet TAKE 1/2 TO 1 TABLET BY MOUTH ONCE TO TWO TIMES A DAY 05/02 completed Not Available Not Available Not Available fluoxetin e 10 mg capsule TAKE 1 CAPSULE BY MOUTH EVERY DAY active Not Available Not Available No t Available omeprazol e 20 mg capsule,d elayed release active Not Available Not Available Not Available diclofena c sodium 75 mg tablet,de layed release Take 1 tablet twice a day by oral route with meals for 10 days. 06/18 completed Not Available Not Available Not Available hydrocort isone 2.5 % topical cream APPLY A THIN LAYER TO THE AFFECTED AREA(S) BY TOPICAL ROUTE 2 TIMES PER DAY active Not Available Not Available No t Available hydroxyzi ne HCl 25 mg tablet TAKE 1 TABLET BY MOUTH 3 TIMES A DAY BY ORAL ROUTE NEEDED FOR 21 DAYS. 08/07 completed Pt taking OTC Benadryl 06/19/19 NMT Not Available Not Available Not Available Culturell e 10 billion cell capsule Take 1 capsule twice a day by oral route for 30 days. 2011 active Not Available Not Available Not Avai lable fluocinol one 0.01 % topical solution 01/02 completed not taking 12/02/18-J V Not Available Not Available Not Available lorazepam 1 mg tablet Take 1 tablet every day by oral route as needed. 01/16 completed PRN Not Available Not Available Not Available diazepam 10 mg tablet 01/02 completed not taking 12/02/18-J V Not Available Not Available Not Available ibuprofen 600 mg tablet TAKE 1 TABLET BY MOUTH EVERY 6 HOURS NEEDED FOR PAIN 02/14 completed Not Available Not Available Not Available fluocinon luciano 0.05 % topical solution APPLY TO THE AFFECTED AREA(S) on scalp BY TOPICAL ROUTE 1-2 TIMES PER DAY. Use up to 2 weeks followed by 1 week off. active Not Available Not Available No t Available estradiol 0.01% (0.1 mg/gram) vaginal cream INSERT 1 GRAM TWICE A WEEK BY VAGINAL ROUTE AT BEDTIME. 02/14 completed not using 09/27/21t t Not Available Not Available Not Available letrozole 2.5 mg tablet TAKE 2 TABLETS BY MOUTH EVERY DAY BEGIN ON 09/28/19 17 01/16 completed Not Available Not Available Not Available methylpre dnisolone 4 mg tablets in a dose pack 02/08 completed Not Available Not Available Not Available albuterol sulfate HFA 90 mcg/actua tion aerosol inhaler INHALE 2 PUFFS BY MOUTH EVERY 4 HOURS NEEDED active prn Not Available Not Available No t Available propranol ol 20 mg tablet taek one tab daily as needed for severe anxiety 02/14 completed prn-not taking currentl y., not using 2-11-22a b Not Available Not Available Not Available hydrocort isone 2.5 % topical ointment TAKE 1 JEANNE APPLIED TOPICALL Y 3 TIMES A DAY X 7 DAYS 03/01 completed not using 2-11-22a b Not Available Not Available Not Available dicyclomi ne 10 mg capsule active Not Available Not Available Not Available diazepam 5 mg tablet TAKE 1 TABLET BY MOUTH 1 HOUR PRIOR TO PROCEDUR E MAY REPEAT ONCE NEEDED 01/02 completed not taking 12/02/18-J V Not Available Not Available Not Available Flexeril 10 mg tablet Take 1 tablet 3 times a day by oral route for 30 days. 10/14 completed Not Available Not Available Not Available oxycodone 5 mg tablet PLEASE SEE ATTACHED FOR DETAILED DIRECTIO NS 02/14 completed Not Available Not Available Not Available Laxative (bisacody l) 5 mg tablet,de layed release TAKE 4 TABLETS ORALLY DIRECTED 1 03/21 completed Not Available Not Available Not Available escitalop theodore 10 mg tablet TAKE 1 AND 1/2 TABLETS DAILY BY MOUTH active Not Available Not Available No t Available cyclobenz aprine 5 mg tablet TAKE 1 TABLET (5 MG TOTAL) BY MOUTH AT BEDTIME FOR 30 DAYS. 09/12 completed Not Available Not Available Not Available clobetaso l 0.05 % shampoo APPLY DAILY TO SCALP NEEDED active Not Available Not Available No t Available nitrofura ntoin monohydra te/macroc rystals 100 mg capsule TAKE 1 CAPSULE BY MOUTH TWICE A DAY 03/01 completed not using Not Available Not Available Not Available Flovent HFA 110 mcg/actua tion aerosol inhaler INHALE 2 PUFFS BY MOUTH TWICE DAILY active Not Available Not Available No t Available Necon 0.5/35 (28) 01/30 completed Not Available Not Available Not Available carisopro dol 250 mg tablet Take 1 tablet every day by oral route at bedtime. 03/29 completed Not Available Not Available Not Available diclofena c 1 % topical gel 08/07 completed Pt not taking 07/04/19 NMT Not Available Not Available Not Available GaviLyte- G 236 gram-22.7 4 gram-6.74 gram-5.86 gram oral solution TAKE 4000ML ORALLY DIRECTED 1 03/21 completed Not Available Not Available Not Available Senexon-S 8.6 mg-50 mg tablet TAKE 1 TABLET BY MOUTH EVERY DAY 02/14 completed Not Available Not Available Not Available lidocaine 5 % topical ointment APPLY TO AFFECTED AREA(S) BY TOPICAL ROUTE 1-4 TIMES DAILY NEEDED 03/21 completed Not Available Not Available Not Available Alyacen 135 (28) 1 mg-35 mcg tablet TAKE 1 TABLET BY MOUTH EVERY DAY 02/08 completed Pt is not on this medicati on 02-09-20 Not Available Not Available Not Available Asmanex HFA 100 mcg/actua tion aerosol inhaler INHALE 2 PUFFS BY MOUTH TWICE DAILY active Not Available Not Available No t Available Vitals None Recorded Social History Question Answer Notes LastModified by Organizat ion Details LastModified Time What Is Your Level Of Alcohol Consumption? Occasional Information not available 03/21/2024 Do You Wear A Helmet When Biking? Yes Information not available 03/23/2015 What Is Your Level Of Caffeine Consumption? Occasional Information not available 03/21/2024 How Much Tobacco Do You Chew? None Information not available 03/23/2015 Are You Currently Employed? Yes Information not available 03/21/2024 What Type Of Diet Are You Following? GLUTENFREE Information not available 03/23/2015 Do You Or Have You Ever Used E-cigarettes Or Vape? 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 No Information no t available 03/21/2024 How Many Days In The Past Year Have You Had A Heavy Drinking Consumption (4+ Female, 5+ Male)? 2 Information no t available 10/07/2020 Are There Any Guns Present In Your Home? No Information not available 03/23/2015 Do You Use Insect Repellent Routinely? No Information not available 03/21/2024 Live Alone Or With Others? With Others Information not available 07/07/2013 Patient Has Health Care Proxy Signed And In Chart Yes [email or web address] Information not available 09/14/2022 Marital Status Informatio n not available 07/07/2013 Mosquito Repellent Used Routinely Yes Information not available 03/23/2015 What Was The Date Of Your Most Recent Tobacco Screening? 05/19/2024 [email or web address] Information not available 05/19/2024 How Many Children Do You Have? 0 Information not available 07/07/2013 Seat Belts Used Routinely Yes Information not available 03/16/2011 Are You Sexually Active? Yes Information not available 07/07/2013 Smoke Alarm In Home Yes Information not available 03/16/2011 Do You Have Smoke And Carbon Monoxide Detectors In Your Home? Yes Information not available 03/21/2024 Are You Passively Exposed To Smoke? No Information no t available 03/21/2024 Do You Or Have You Ever Used Smokeless Tobacco? Never Used Smokeless Tobacco Information not available 06/07/2020 How Much Tobacco Do You Smoke? No Information not available 06/07/2020 General Stress Level Medium Information not available 03/23/2015 Do You Use Any Illicit Or Recreational Drugs? No Information not available 03/21/2024 Do You Use Sunscreen Routinely? Yes Information not available 03/23/2015 How Many Days In The Past Year Have You Consumed 4 Or More Drinks? 0 Information no t available 03/21/2024 Sex: Female Functional Status Question Answer Note LastModified by Organization D etails LastModified Time What is your exercise level? Moderate Information not available 03/21/2024 Mental Status None recorded. Family History Relationship Description Onset Age of this Age Resolved Age Notes LastModified by Organization Details LastModified Time Father Non-Hodgkin' s lymphoma (clinical) gastri c cancer ? [email or web address] Not available 10/08/2020 10:42:57 Sister Psoriasis dara Not availab le 08/28/2016 15:52:00 Mother Rheumatoid arthritis [email or web address] Not available 2016 15:52:29 Paternal Aunt Malignant tumor of breast 50 and endome trial cancer tfurcolo Not available 02/09/2020 11:24:03 Notes:HTN, stroke, father st omach cancer and nonhodgkins lymphoma, paternal aunt breast cancer age 45, grandfather stomach cancer Medical History Condition Response SKIN Y EYE Y MUSCULOSKELETAL Y CARDIOVASCULAR Y RENAL / GENITOURINARY Y Allergic Rhinitis Y PSYCHIATRIC Y GASTROINTESTINAL Y Asthma Y Gynecological History Statement/Question Response Menses Monthly Y Current Control Method None Obstetrics History GPAL:G 0 P 0 0 0 0 Past Encounters Encounter ID Performer Location Encounter Start Date Encounter Closed Date Diagnosis/Indication Diagnosis SNOMED-CT Code Diagnosis ICD10 Code Diagnosis Note [id number] AXEL [facility], OFFICE [address] [place] [address] 06/09/2010 13:59:56 06/15/2010 11:52:16 [id number] AXEL [facility], OFFICE [address] [place] [address] 08/11/2010 15:29:37 08/16/2010 09:44:04 [id number] AXEL [facility], OFFICE [address] [place] [address] 09/14/2010 13:36:45 09/16/2010 11:06:36 [id number] Physical Therapy, [facility] [address] [place] [address] 09/28/2010 16:35:33 09/29/2010 08:07:36 [id number] , [facility], OFFICE [address] [place] [address] 03/07/2011 14:17:50 03/08/2011 13:51:49 [id number] Vika Boudreaux MA , [facility], OFFICE [address] [place] [address] 06/08/2011 08:33:43 06/12/2011 12:20:05 [id number] Vika Boudreaux MA , [facility], OFFICE [address] [place] [address] 08/28/2011 12:12:24 08/30/2011 10:04:57 [id number] [facility], OFFICE [address] [place] [address] 01/04/2012 15:12:57 01/05/2012 15:11:48 [id number] Katerin Cui, Ms, Rdn, Ldn, CDE Nutrition -[facility] [address] [place] [address] 01/16/2012 09:40:06 01/16/2012 10:38:43 [id number] Sheri Jaquez , [facility], OFFICE [address] [place] [address] 07/07/2013 09:25:17 07/07/2013 11:04:52 [id number] Mckenzie Holt RN , [facility], OFFICE [address] [place] [address] 05/01/2014 11:37:17 05/01/2014 12:16:26 [id number] [facility], OFFICE [address] [place] [address] 01/05/2015 10:58:39 01/05/2015 12:23:23 [id number] Yan Rodriguez MD , [facility], OFFICE [address] [place] [address] 03/23/2015 11:42:31 03/23/2015 13:02:29 [id number] Yan Rodriguez MD , [facility], OFFICE [address] [facility] [place] [facility] [place] [address] 10/15/2015 14:43:10 10/15/2015 15:50:40 [id number] Yan Rodriguez MD , [facility], OFFICE [address] [facility] [place] [facility] [address] 08/28/2016 15:01:00 08/28/2016 15:58:39 [id number] Yan Rodriguez MD , [facility], OFFICE [address] [facility] [place] [address] 01/16/2017 17:31:31 01/17/2017 07:59:45 [id number] BERNIE Diaz , [facility], OFFICE [address] [place] [address] [place] [facility] [place] [address] 03/29/2017 07:58:05 03/29/2017 08:24:55 [id number] Lewis Goncalves, DPM Podiatry, [facility] [address] [facility] [place] [address] 05/02/2017 15:01:28 05/02/2017 15:57:59 [id number] Cameron Ortiz MD , [facility], OFFICE [address] [place] [address] 07/07/2017 11:06:56 07/07/2017 15:45:10 [id number] Caden Kelley NP , [facility], OFFICE [address] [place] [address] [place] [facility] [place] [address] 08/23/2017 16:33:12 08/23/2017 18:16:48 [id number] Yan Rodriguez MD , [facility], OFFICE [address] [facility] [place] [address] 10/19/2017 08:00:02 10/19/2017 11:57:19 [id number] MARIYA Weiner, [facility], [facility], OFFICE [address] [facility] [place] [facility] [place] [address] 11/01/2017 14:23:17 11/01/2017 16:27:38 [id number] Wes Cuadra MD , [facility], OFFICE [address] [place] [address] 01/07/2018 10:11:08 01/07/2018 10:44:08 [id number] Layla Keene NP FP, [facility], OFFICE [address] [place] [address] [place] [address] 01/30/2018 08:13:15 01/30/2018 09:05:21 [id number] Cristina Bunch, PT Physical Therapy, [facility] [address] [facility] [place] [place] [address] 05/07/2018 17:17:52 05/13/2018 09:21:21 [id number] Yan Rodriguez MD , [facility], OFFICE [address] [place] [address], [place] [address] 08/28/2018 15:47:48 08/30/2018 09:34:07 [id number] Addie hameed NP FP, [facility], OFFICE [address] [place] [address], [place] [address] 12/02/2018 10:30:57 12/02/2018 11:16:18 [id number] Addie hameed NP FP, [facility], OFFICE [address] [place] [address] [place] [facility] [place] [address] 01/02/2019 15:10:20 01/07/2019 16:18:37 [id number] MD AXEL Flaherty, [facility], OFFICE [address] [place] [address] [place] [facility] [place] [address] 01/07/2019 08:29:32 01/07/2019 10:36:45 [id number] MD AXEL Flaherty, [facility], OFFICE [address] [place] [address] [place] [facility] [place] [address] 01/13/2019 08:30:14 01/13/2019 10:03:12 [id number] Addie hameed NP FP, [facility], OFFICE [address] [place] [address] [place] [facility] [place] [address] 02/27/2019 09:13:30 02/27/2019 10:12:47 [id number] DEBI Garcia, [facility], OFFICE [address] [place] [address] 03/22/2019 12:00:03 03/22/2019 13:43:44 [id number] Maria E Riley RN [facility], [facility] [address] [place] [address] 03/26/2019 09:30:25 03/26/2019 11:26:03 [id number] MD AXEL Mathews, [facility], OFFICE [address] [place] [address] 04/05/2019 10:01:24 04/05/2019 10:59:53 [id number] Eva Jeronimo NP FP, [facility], OFFICE [address] [place] [facility] [place] [address] 04/07/2019 12:11:22 04/07/2019 15:52:15 [id number] JONATHAN Casas, [facility], OFF[address] [place] [place] [facility] [place] [address] 05/08/2019 09:20:18 05/08/2019 11:49:17 [id number] JONATHAN Casas, [facility], OFF[address] [place] [place] [facility] [address] 06/19/2019 09:25:36 06/19/2019 10:19:38 [id number] JONATHAN Casas, [facility], OFF[address] [place] [place] [facility] [address] 07/04/2019 09:58:25 07/04/2019 13:10:35 [id number] Shari REYNA, [facility], OFFICE [address] [place] [address] 07/06/2019 09:54:25 07/06/2019 11:36:51 [id number] DEBI Pena, [facility], OFFICE [address] [place] [facility] [place] [address] 08/08/2019 11:17:14 08/08/2019 15:50:18 [id number] JONATHAN Casas, [facility], OFF[address] [place] [place] [facility] [place] [address] 09/15/2019 08:37:17 09/15/2019 10:58:50 [id number] Sheri Jaquez , [facility], OFFICE [address] [facility] [place] [address] 10/03/2019 08:25:45 10/03/2019 09:59:12 [id number] Cassi Smalls , [facility], OFFICE [address] [place] [address] 10/29/2019 15:40:04 10/30/2019 16:57:[id number] [facility], OFFICE [address] [facility] [place] [address] 11/12/2019 15:55:59 11/13/2019 14:34:05 [id number] Shari ZamudioOAlexia [address] [place] [address] 02/09/2020 10:39:59 02/11/2020 16:25:59 [id number] Nathaly Hernandez PA-C [address] [place] [address] 04/01/2020 14:49:08 04/01/2020 16:04:12 [id number] Randee Casanova ALLERGIST [address] [place] [address] 04/08/2020 13:23:52 04/08/2020 13:50:34 [id number] Alysia Knowles ALLERGIST [address] [place] [address] 04/09/2020 16:39:41 04/16/2020 17:40:55 [id number] Shari ZamudioOAlexia [address] [place] [address] 06/07/2020 11:50:39 06/10/2020 08:58:15 [id number] Shari Chakraborty.O. [address] [place] [address] 1 10/07/2020 15:48:51 10/07/2020 16:27:12 [id number] Shari Chakraborty.OAlexia [address] [place] [address] 12/06/2020 09:10:09 12/06/2020 11:40:50 [id number] Shari Furcolo D.O. [facility], OFFICE [address] [place] [id number] 02/14/2021 13:33:09 02/14/2021 14:43:20 [id number] Floresita Velazco, DNP, [employer] , [facility], OFFICE [address] [place] [address] 06/10/2021 11:56:27 06/15/2021 12:34:29 [id number] Shari Furcolo D.O. [facility], OFFICE [address] [place] [address] 08/03/2021 14:31:51 08/04/2021 15:11:33 [id number] Isela galvan NP [facility], OFFICE [address] [place] [address] [place] [address] 09/27/2021 15:32:25 10/18/2021 10:48:14 [id number] Shari Furcolo D.O. [facility], OFFICE [address] [place] [address] 02/14/2022 14:39:47 02/14/2022 16:04:39 [id number] Shari Furcolo D.O. [facility], OFFICE [address] [place] [id number] 03/01/2022 08:33:57 03/01/2022 09:17:37 [id number] Shari Furcolo D.O. [facility], [address] [place] [address] 09/12/2022 10:28:20 09/12/2022 17:53:18 [id number] Shari Furcolo D.O. [facility], [address] [place] [address] 09/27/2022 15:41:36 09/27/2022 17:40:06 [id number] Diane Mena DO , [facility], OFFICE [address] [place] [address] 11/16/2022 10:49:05 11/16/2022 13:32:20 [id number] Marley Ding NP , [facility], OFFICE [address] [place] [address] 04/27/2023 13:39:56 04/27/2023 17:54:50 [id number] Yan Rodriguez MD , [facility], OFFICE [address] [place] [address] 10/29/2023 11:14:25 10/29/2023 17:45:35 [id number] Elidia Lopez RN Endoscopy , [address] [address] 12/11/2023 12:21:32 12/11/2023 14:15:19 [id number] Diane Mena DO , [facility], OFFICE [address] [place] [address] 03/21/2024 10:04:12 03/21/2024 11:17:29 [id number] Verna More MD , [facility], OFFICE [address] [place] [address] 05/19/2024 15:57:44 05/20/2024 10:29:22 [id number] Verna More MD , [facility], OFFICE [address] [place] [address] 06/12/2024 08:52:13 06/13/2024 14:31:33 Health Concerns Section Related Observation LastModified by Organization Detai ls LastModified Time None Recorded Concern Status LastModified by Organization Details LastModified Time None Recorded Advance Directives Directive None Recorded Payers Encounter Date Sequence Insurance Name Policy Number Policy Lyle Covered Member ID Lyle Member ID Guarantor Name 04/27/2023 1 [place] [id number] Paco Matias den [id number] 10/29/2023 1 [place] [id number] Paco Matias den [id number] 03/21/2024 1 [place] [id number] Paco Matias den [id number] 05/19/2024 1 [place] [id number] Paco Matias den [id number] Z[address]arias 06/12/2024 1 [place] [id number] Paco shipley [id number] [address] Zacarias OBGyn Episode No OBEpisode recorded.
--- NOTE | 2024-06-16 10:38 | PC.NURSE ---
Patient reports has been having back pain that radiates under armpits, under ribs and towards kidneys. was told by [facility] that is was muscular , and she went to see a chiropractor on sunday. Reports pain was worse after seeing chiropractor
--- NOTE | 2024-06-16 10:44 | ED_ITS ---
HPI - General Adult General Chief complaint: Back Pain/Injury Stated complaint: Back Pain No Injury Time Seen by Provider: 06/16/24 10:30 History of Present Illness HPI narrative: Patient has been experiencing midthoracic back pain at the level of a the scapula for several weeks after lifting a heavy box , pain is worse with movement, and it also got worse after seeing the chiropractor 3 days ago There is no radiation of pain there is no weakness of extremities, there is no numbness weakness or tingling no changes to bowel or bladder no dysuria no incontinence no skin rash no chest pain Related Data Previous Rx's ?Medication ?Instructions ?Recorded cyclobenzaprine 5 mg tablet 5 mg PO TID PRN muscle spasm #14 06/16/24 tabs oxycodone 5 mg tablet 5 mg PO Q6H PRN pain #10 tabs 06/16/24 Allergies Allergy/AdvReac Type Severity Reaction Status Date / Time Penicillins [PCN] Allergy Hives Verified 06/16/24 10:08 Sulfa (Sulfonamide AdvReac Hives Verified 01/03/23 00:16 Antibiotics) COUNT INCLUDES THE [facility] Past Medical History Source: nursing notes reviewed Social History Social History Alcohol intake: never Smoked in Last 30 Days: No Use of substances other than those prescribed or required for medical reasons: No Advance Directives: No Advance Directives Information Provided: Yes Physical Exam ED Vital Signs: Vital Signs - 24 hr 06/16/24 10:06 Temperature 98.8 F Pulse Rate 97 Respiratory Rate 16 Blood Pressure 108/68 Pulse Oximetry 98 Oxygen Delivery Method Room Air BMI result Body Mass Index 21.1 General appearance is no distress Head is normocephalic atraumatic Neck is supple Chest is clear to auscultation bilateral with full symmetric equal breath sounds Heart no murmur The abdomen is soft no tenderness no rebound The back had midthoracic at the level of the point of the scapula tenderness, there was no rash no redness no warmth there was no focal bony tenderness was a diffuse tenderness around the area the skin is normal in appearance, and pain was reproduced with movement, there was no tenderness in the lower lumbar area Extremities full range of motion x4 Neuro gait balance are normal, interaction comprehension expression normal, motor is 5/5 x4 and sensation in distal extremities intact and symmetrical Course Course Course Narrative: Chest x-ray was done and was normal with no acute findings Thoracic spine x-ray was done showing minimal midthoracic degenerative disease but no acute findings Well-appearing patient no neurologic deficits is discharged Discharge Plan Discharge Clinical Impression: Back pain Patient Disposition: Home, Self-Care Additional Instructions: Your x-ray did not show anything acute that would explain your symptoms Pain is likely from inflamed or irritated soft tissue I wrote for a muscle relaxer and some pain medication to use as needed but muscle relaxer and oxycodone can cause drowsiness so no driving for 6-8 hours after taking either 1 of them Follow with primary doctor, physical therapy may be helpful and he can give a referral Return any time any worse condition or any concerns Prescriptions: New oxycodone 5 mg tablet 5 mg PO Q6H PRN (Reason: pain) Qty: 10 0RF Rx Instructions: Partial Fill upon patient request. cyclobenzaprine 5 mg tablet 5 mg PO TID PRN (Reason: muscle spasm) Qty: 14 0RF Print Language: Croatian
[2024-06-16 12:01] VITALS: BP 101/65; PULSE 87; RESP 16; TEMP 37.2; O2SAT 98
[2024-06-16 12:02] VITALS: BP 101/65; PULSE 87; RESP 16; TEMP 37.2; O2SAT 98
== END 2024-06-16 12:02 | disposition home or self-care (01) ==
PROVIDERS: Emergency Provider Emergency Medicine
DX: M54.50 Low back pain, unspecified (principal); M54.6 Pain in thoracic spine; R07.89 Other chest pain; Z79.899 Other long term (current) drug therapy
CPT/HCPCS: 71046; 72070; 99283; 99284

== ENCOUNTER → 2024-06-16 10:53 | Outpatient (BNV) | payer BC, SELFPAY | PROVIDERS: Emergency Provider Emergency Medicine; Visit Provider Radiology Diagnostic Radiology | DX: R07.9 Chest pain, unspecified (principal); M51.34 Other intervertebral disc degeneration, thoracic region | CPT/HCPCS: 71046; 72070 ==